=== PATIENT | male | born 1970 | race Caucasian/White ===

== ENCOUNTER → 2020-01-25 13:07 | Outpatient (REF) | payer BC, SELFPAY | LOC: ANHLAB 13:07 | PROVIDERS: PCP Family Medicine; Visit Provider Nurse Practitioner | DX: R22.9 Localized swelling, mass and lump, unspecified (principal); S00.252A Superficial foreign body of left eyelid and periocular area, initial encounter | CPT/HCPCS: 88304 ==

== ENCOUNTER 2021-08-09 22:52 | Emergency (ER) | payer BC, SELFPAY ==
--- NOTE | ~2021-08-09 | XR_ITS ---
EXAMINATION: XR chest 2V DATE: 08/10/2021 00:51 INDICATION: Productive cough. TECHNIQUE: Frontal and lateral views of the chest were obtained. COMPARISON: None. FINDINGS: There are mild airspace opacities in superior segment left lower lobe. No pleural effusion or pneumothorax. The heart size is normal. IMPRESSION: 1. Mild airspace opacities in superior segment left lower lobe, consistent with atelectasis versus pn eumonia. Reviewed, dictated and finalized at location A. IMPRESSION: 1. Mild airspace opacities in superior segment left lower lobe, consistent with atelectasis versus pneumonia.
[2021-08-09 22:54] VITALS: BP 170/92; PULSE 89; RESP 20; TEMP 36.4; O2SAT 100
[2021-08-10 00:29] VITALS: BP 146/90; PULSE 95; RESP 18; O2SAT 100; O2SAT 99
--- NOTE | 2021-08-10 01:31 | ED.URI ---
HPI - URI/Sore Throat General Chief Complaint: Upper Respiratory Infection <Lay Markham PA-C - Last Filed: 08/10/21 03:04> Stated Complaint: SOB, cough <Lay Markham PA-C - Last Filed: 08/10/21 03:04> Time Seen by Provider: 08/10/21 00:06 <Lay Markham PA-C - Last Filed: 08/10/21 03:04> History of Present Illness HPI Narrative: Patient is a 50-year-old male with a history of anxiety who presents for evaluation of a cough that has been intermittent in nature in the past 6 months, but has been relatively persistent over the past 3 weeks. Patient states he has been coughing up clear sputum, and that his coughing fits occasionally makes him feel short of breath. Has been vaccinated against COVID and flu, and second negative at home test upon start of his symptoms. He is also been treated for his cough with albuterol as needed and azithromycin, which provided temporary relief of his symptoms, but they returned about 4 days ago. He has never had imaging of his lungs. Additionally has been taking Mucinex with some relief. He denies any chest pain, leg swelling, hemoptysis, nausea, vomiting, fevers, chills, weakness, rash, exertional dyspnea. He has a remote smoking history 18 years ago but quit, and he does report exposure to silica at work. No ACEI use. <DUSTIN Peters Last Filed: 08/10/21 03:04> Related Data Home Medications: Home Medications Medication Instructions Recorded Confirmed buspirone 15 mg tablet 15 mg PO .QD tablet 11/29/19 07/24/21 escitalopram oxalate 20 mg tablet 10 mg PO DAILY tablet 11/29/19 07/24/21 naltrexone 50 mg tablet 50 mg PO DAILY 07/08/21 07/24/21 <DUSTIN Peters Last Filed: 08/10/21 03:04> Allergies/Adverse Reactions: Allergies Allergy/AdvReac Type Severity Reaction Status Date / Time diclofenac Allergy Unknown Unknown Verified 08/09/21 22:58 shrimp Allergy Itching Verified 08/09/21 22:58 <Lay Markham PA-C - Last Filed: 08/10/21 03:04> Review of Systems Review of Systems: Gen: Denies fevers or chills Eyes: Denies eye pain or visual change ENT: Denies congestion Respiratory: Reports cough. CV: Denies chest pain or palpitations GI: Denies abdominal pain nausea, emesis or diarrhea : denies burning, urgency, frequency or hematuria Musculoskeletal: Denies back pain or muscle pain Neuro: Denies numbness, tingling, weakness or focal weakness Skin: Denies rash Except as documented, all other systems reviewed and negative <Lay Markham PA-C - Last Filed: 08/10/21 03:04> All systems reviewed & are unremarkable except as noted in HPI and below <Lay Markham PA-C - Last Filed: 08/10/21 03:04> [facility] Past Medical History Medical History: Medical History Anxiety BMI 33.0-33.9,adult Bursitis of shoulder, left Class 1 obesity with body mass index (BMI) of 33.0 to 33.9 in adult Eczematous skin lesions Extensor tendon laceration of left elbow with open wound Post concussion syndrome Prostate cancer screening Subdural hem-concussion TBI (traumatic brain injury) Vitamin B12 deficiency Wellness examination <Lay Markham PA-C - Last Filed: 08/10/21 03:04> Surgical History Surgical History: Surgical History History of elbow surgery History of hand surgery History of hernia repair History of shoulder surgery <Lay Markham PA-C - Last Filed: 08/10/21 03:04> Social History Social History: Social History Second hand tobacco smoke exposure: No Smoking end date: 04/26/99 Alcohol intake: current Drinks per week: 3 Substance use: never Substance use type: does not use Gender identity (if verbalized by the patient): Male Sexual Orientation (if Verbal
[2021-08-10 01:49] LABS: SARS-CoV-2 RNA PCR Negative
[2021-08-10 02:06] VITALS: BP 131/86; PULSE 81; RESP 18; O2SAT 98
[2021-08-10] MEDS: BENZONATATE 100 MG CAPSULE PO (02:06)
== END 2021-08-10 02:11 | disposition home or self-care (01) ==
PROVIDERS: Physician Assistant; Emergency Provider Emergency Medicine; PCP Family Medicine
DX: R05.3 Chronic cough (principal); Z57.2 Occupational exposure to dust; F41.9 Anxiety disorder, unspecified; E55.9 Vitamin D deficiency, unspecified; Z87.891 Personal history of nicotine dependence; Z87.820 Personal history of traumatic brain injury; Z20.822 Contact with and (suspected) exposure to COVID-19
CPT/HCPCS: 71046; 99283; A9270; C9803; U0003; U0005

== ENCOUNTER 2021-08-26 00:06 | Day surgery (SDC) | payer BC, SELFPAY ==
[2021-08-26 06:16] VITALS: BP 114/87; PULSE 73; RESP 18; TEMP 36.1; O2SAT 98
[2021-08-26] MEDS: LACTATED RINGERS 1,000 ML 150 ML IV CONT (06:20)
--- NOTE | 2021-08-26 07:15 | WPDGICN ---
Assessment and Plan Assessment and plan (1) Colon cancer screening: Code(s): Z12.11 - Encounter for screening for malignant neoplasm of colon Status: Acute Assessment and Plan: Patient presents for screening colonoscopy. He appears to be at average risk for colon polyps. GI Consult Note Consult date/time: 08/26/21 07:15 HPI: Miriam Alvarenga is a 50 year old male Presents for screening colonoscopy. Patient's current weight appetite bowel movements are normal. He denies abdominal pain. He has had no bleeding. Family history is noncontributory. Review of Systems Review of Systems: All systems reviewed & are unremarkable except as noted in HPI and below PMFSH Past Medical History Medical History (Reviewed 08/13/21 @ 13:52 by Loida Mccurdy [facility]) Anxiety BMI 33.0-33.9,adult Bursitis of shoulder, left Class 1 obesity with body mass index (BMI) of 33.0 to 33.9 in adult Eczematous skin lesions Extensor tendon laceration of left elbow with open wound Post concussion syndrome Prostate cancer screening Subdural hem-concussion TBI (traumatic brain injury) Vitamin B12 deficiency Wellness examination Surgical History Surgical History History of elbow surgery History of hand surgery History of hernia repair History of shoulder surgery Social History Social History (Reviewed 08/13/21 @ 13:52 by Loida Mccurdy [facility]) Smoking packs per day: 1 Smoking cigarettes per day: 20.0 Years smoked: 13 Smoking pack-years: 13.00 Smoking status: Former smoker Tobacco type: cigarettes Second hand tobacco smoke exposure: No Smoking end date: 04/26/99 Alcohol intake: current Drinks per week: 12 Substance use: never Substance use type: does not use Living arrangements: with family Gender identity (if verbalized by the patient): Male Sexual Orientation (if Verbalized by the Patient): Straight or Heterosexual Spiritual care concerns: No Meds Home Medications and Allergies Home Medications Medication Instructions Recorded Confirmed Type buspirone 15 mg tablet 15 mg PO .QD tablet 11/29/19 08/26/21 History escitalopram oxalate 20 mg tablet 10 mg PO DAILY tablet 11/29/19 08/26/21 History triamcinolone acetonide 0.1 % 1 applic TOPICAL BID #30 gm 08/23/20 08/26/21 Rx topical cream clotrimazole-betamethasone 1 1 applic TOPICAL BID 14 Days #45 g 08/29/20 08/26/21 Rx %-0.05 % topical cream tolnaftate 1 % topical powder 1 applic TOPICAL DAILY #45 g 08/29/20 08/26/21 Rx ascorbic acid (vitamin C) 500 mg 250 mg PO DAILY #30 tablet 07/08/21 08/26/21 Rx tablet mecobalamin (vitamin B12) 1,000 1,000 mcg SUBLINGUAL DAILY #30 07/08/21 08/26/21 Rx mcg disintegrating tablet tablet,sublingual naltrexone 50 mg tablet 50 mg PO DAILY 07/08/21 08/26/21 History omega-3 900 mg-dha 360 mg-epa 455 1 cap PO DAILY #30 cap 07/08/21 08/26/21 Rx mg-fish oil 1,000 mg capsule benzonatate 100 mg PO BID #20 cap 08/10/21 08/26/21 Rx Allergies Allergy/AdvReac Type Severity Reaction Status Date / Time diclofenac Allergy Unknown Unknown Verified 08/26/21 06:15 shrimp Allergy Hives Verified 08/26/21 06:15 Vital Signs Vital Signs - 24 hr 08/26/21 06:16 Temperature 96.9 F L Pulse Rate 73 Respiratory Rate 18 Blood Pressure 114/87 Pulse Oximetry 98 Exam Narrative: Physical exam reveals patient be alert. Vital signs stable. HEENT exam is unremarkable. Patient is anicteric. Lungs are clear to auscultation percussion. Heart is without murmur or extra sounds. Abdomen bowel sounds are present soft nontender with no organomegaly. Digital external rectal exam is normal.
--- NOTE | 2021-08-26 07:16 | WPDANESEPPF ---
Anes - Initial Pre Proc Eval Procedure: Operation Date: 08/26/21 07:30 Proposed Procedures p Screening Colonoscopy - Errol Iqbal MD Date/Time: 08/26/21 07:16 Surgeon: Errol Iqbal MD Pre Op Diagnosis: neoplasm screening Patient Data Age: 50 Gender: M Height: 1.78 m Weight: 94 kg Last Vital Signs Temp 96.9 F L 08/26/21 06:16 Pulse 73 08/26/21 06:16 Resp 18 08/26/21 06:16 BP 114/87 08/26/21 06:16 Pulse Ox 98 08/26/21 06:16 Allergies Allergy/AdvReac Type Severity Reaction Status Date / Time diclofenac Allergy Unknown Unknown Verified 08/26/21 06:15 shrimp Allergy Hives Verified 08/26/21 06:15 Home Medications Medication Instructions Recorded Confirmed Type buspirone 15 mg tablet 15 mg PO .QD tablet 11/29/19 08/26/21 History escitalopram oxalate 20 mg tablet 10 mg PO DAILY tablet 11/29/19 08/26/21 History triamcinolone acetonide 0.1 % 1 applic TOPICAL BID #30 gm 08/23/20 08/26/21 Rx topical cream clotrimazole-betamethasone 1 1 applic TOPICAL BID 14 Days #45 g 08/29/20 08/26/21 Rx %-0.05 % topical cream tolnaftate 1 % topical powder 1 applic TOPICAL DAILY #45 g 08/29/20 08/26/21 Rx ascorbic acid (vitamin C) 500 mg 250 mg PO DAILY #30 tablet 07/08/21 08/26/21 Rx tablet mecobalamin (vitamin B12) 1,000 1,000 mcg SUBLINGUAL DAILY #30 07/08/21 08/26/21 Rx mcg disintegrating tablet tablet,sublingual naltrexone 50 mg tablet 50 mg PO DAILY 07/08/21 08/26/21 History omega-3 900 mg-dha 360 mg-epa 455 1 cap PO DAILY #30 cap 07/08/21 08/26/21 Rx mg-fish oil 1,000 mg capsule benzonatate 100 mg PO BID #20 cap 08/10/21 08/26/21 Rx Patient hx anesthesia problems: post op nausea/vomiting Family hx anesthesia problems: none Results Review: All pre-operative results and documents have been reviewed as part of the pre-operative evaluation. PMFSH Past Medical History Medical History Anxiety BMI 33.0-33.9,adult Bursitis of shoulder, left Class 1 obesity with body mass index (BMI) of 33.0 to 33.9 in adult Eczematous skin lesions Extensor tendon laceration of left elbow with open wound Post concussion syndrome Prostate cancer screening Subdural hem-concussion TBI (traumatic brain injury) Vitamin B12 deficiency Wellness examination Surgical History Surgical History History of elbow surgery History of hand surgery History of hernia repair History of shoulder surgery Social History Social History Smoking packs per day: 1 Smoking cigarettes per day: 20.0 Years smoked: 13 Smoking pack-years: 13.00 Smoking status: Former smoker Tobacco type: cigarettes Second hand tobacco smoke exposure: No Smoking end date: 04/26/99 Alcohol intake: current Drinks per week: 12 Substance use: never Substance use type: does not use Living arrangements: with family Gender identity (if verbalized by the patient): Male Sexual Orientation (if Verbalized by the Patient): Straight or Heterosexual Spiritual care concerns: No Anes - Eval Final PreProcedure Day of Procedure 08/26/21 07:16 Patient weight: obese Heart: regular rate and rhythm Lungs: clear to auscultation Airway: Mallampati scale class III Neurological: alert and oriented Last oral intake: >/= 8 hours ASA classification: III Emergent: no Anesthetic plan: proceed Anesthesia type and monitoring: general GIVS and standard monitoring Results Review: All pre-operative results and documents have been reviewed as part of the pre-operative evaluation. Informed Consent: The patient's anesthetic plan and its attendant risks and benefits were discussed with the patient/family/POA. Questions were solicited and answers provided to the satisfaction of the patient/family/POA.
[2021-08-26] MEDS: SIMETHICONE ORAL SUSPENSION 20 MG/0.3 ML 30 ML BOTTLE 0.6 ML IRRIGATION (07:40)
[2021-08-26 07:51] VITALS: BP 110/85; PULSE 75; RESP 20; O2SAT 97
[2021-08-26 08:01] VITALS: BP 111/75; PULSE 61; RESP 17; O2SAT 99
[2021-08-26 08:11] VITALS: BP 106/79; PULSE 56; RESP 19; O2SAT 99
== END 2021-08-26 08:15 | disposition home or self-care (01) ==
PROVIDERS: PCP Family Medicine; Visit Provider Internal Medicine Gastroenterology
PROC: 0DJD8ZZ Inspection of Lower Intestinal Tract, Via Natural or Artificial Opening Endoscopic (ICD-10-PCS; CPT 45378; principal; 2021-08-26 07:30)
DX: Z12.11 Encounter for screening for malignant neoplasm of colon (principal); D12.3 Benign neoplasm of transverse colon; K64.8 Other hemorrhoids; E53.8 Deficiency of other specified B group vitamins; F41.9 Anxiety disorder, unspecified; Z87.820 Personal history of traumatic brain injury; Z87.891 Personal history of nicotine dependence
CPT/HCPCS: 45385; 88305; J2704; J7120

== ENCOUNTER → 2021-10-31 02:03 | Outpatient (CLI) | payer BC, SELFPAY ==
[2021-10-31 12:24] LABS: SARS-CoV-2 RNA PCR Positive
== END ==
PROVIDERS: PCP Family Medicine; Visit Provider Family Medicine
DX: U07.1 COVID-19 (principal)
CPT/HCPCS: C9803; U0003; U0005

== ENCOUNTER 2021-11-25 09:26 | Outpatient (CLI) | payer BC, SELFPAY ==
--- NOTE | ~2021-11-25 | XR_ITS ---
EXAMINATION: XR chest 2V 11/25/2021 09:45 INDICATION: Dyspnea. Cough. PROCEDURE: 2 view chest COMPARISON: 08/10/2021 FINDINGS: The lungs are clear. The cardiomediastinal silhouette is within normal limits. There are no pleural effusions. There is no pneumothorax suspected. IMPRESSION: 1: NO ACUTE CARDIOPULMONARY DISEASE. Reviewed, dictated and finalized at location A.
== END 2021-11-25 09:27 | disposition home or self-care (01) ==
PROVIDERS: PCP Family Medicine; Visit Provider Internal Medicine Pulmonary Disease
DX: R91.8 Other nonspecific abnormal finding of lung field (principal)
CPT/HCPCS: 71046

== ENCOUNTER → 2022-05-07 09:45 | Outpatient (CLI) | payer OTHER, SELFPAY ==
--- NOTE | ~2022-05-07 | US_ITS ---
EXAMINATION: US abdomen complete DATE: 05/07/2022 10:08 INDICATION: Unspecified abdominal pain TECHNIQUE: Multiple grayscale and Doppler ultrasound images of the abdomen were obtained. COMPARISON: None available FINDINGS: Bowel gas obscures visualization of the pancreas. The liver is normal with normal echogenic ity and echotexture. No surface nodularity. Normal hepatopetal flow in the main portal vein. The gall bladder is normal with no abnormal wall thickening, pericholecystic fluid or stones. The normal commo n bile duct measures 5 mm. There was no sonographic Pinto sign. The visualized portions of the aorta and inferior vena cava are normal. The spleen is normal in appearance and measures 11.2 cm. The right kidney measures 10.9 x 5.0 x 4.4 c m. The left kidney measures 11.5 x 4.1 x 5.7 cm. The kidneys demonstrate normal parenchymal echogenic ity. There is no hydronephrosis. IMPRESSION: 1. No sonographic correlate for the patient's symptoms. Reviewed, dictated and finalized at location L. L PUNCH OPERATOR
== END ==
PROVIDERS: PCP Family Medicine; Visit Provider Physician Assistant
DX: R10.9 Unspecified abdominal pain (principal)
CPT/HCPCS: 76700

== ENCOUNTER 2022-05-20 12:51 | Outpatient (CLI) | payer OTHER, SELFPAY ==
[2022-05-23 11:21] LABS: Gliadin AB, IgG <1.0 U/mL (<15.0); TTG IGA AB <1.0 U/mL (<15.0)
[2022-05-27 23:56] LABS: Calprotectin, Stool 19 mcg/g
== END 2022-05-20 12:52 | disposition home or self-care (01) ==
LOC: ANHLAB 12:53
PROVIDERS: PCP Family Medicine; Visit Provider Nurse Practitioner
DX: R10.11 Right upper quadrant pain (principal); K58.0 Irritable bowel syndrome with diarrhea; K90.9 Intestinal malabsorption, unspecified
CPT/HCPCS: 36415; 83516; 83993; 86255

== ENCOUNTER 2022-05-27 07:36 | Outpatient (CLI) | payer OTHER, SELFPAY ==
--- NOTE | ~2022-05-27 | NM_ITS ---
EXAMINATION: NM hepatobiliary wo pharm DATE: 05/27/2022 12:30 INDICATION: Postprandial right upper quadrant abdominal pain COMPARISON: None. TECHNIQUE: 5.1 mCi Tc-99m mebrofenin (Choletec) was administered intravenously. Scintigraphic images of the abdomen were obtained for one hour. At the 1 hour time point, the patient drank 8 oz Ensure, and imaging was continued for 60 minutes. Gallbladder ejection fraction was calculated by the technol ogist. FINDINGS: There is normal clearance of radiotracer from the blood pool. There is homogeneous tracer u ptake by the liver. Activity progresses to the bowel and gallbladder. The gallbladder ejection fract ion (GBEF) is 62%. Note that with this technique, normal GBEF >= 33%. IMPRESSION: 1. Normal hepatobiliary scan Reviewed, dictated and finalized at location A. AR TAILOR
== END 2022-05-27 07:37 | disposition home or self-care (01) ==
LOC: ANHIMG 07:39
PROVIDERS: PCP Family Medicine; Visit Provider Nurse Practitioner Family
DX: R10.11 Right upper quadrant pain (principal); K90.9 Intestinal malabsorption, unspecified
CPT/HCPCS: 78226; A9537

== ENCOUNTER 2023-01-20 15:40 | Outpatient (CLI) | payer OTHER, SELFPAY ==
[2023-01-20 17:10] LABS: Influenza A QL RT-PCR Negative (Negative); Influenza B QL RT-PCR Negative (Negative); RSV RNA, RT-PCR Negative (Negative); SARS-CoV-2 RNA PCR Positive (Negative)
== END 2023-01-20 15:41 | disposition home or self-care (01) ==
LOC: ANHLAB 15:42
PROVIDERS: PCP Family Medicine; Visit Provider Physician Assistant
DX: U07.1 COVID-19 (principal)
CPT/HCPCS: 87637

== ENCOUNTER 2024-06-01 19:27 | Emergency (ER) | payer OTHER, SELFPAY ==
--- NOTE | ~2024-06-01 | US_ITS ---
EXAMINATION: US venous doppler LE RT DATE: 06/01/2024 21:57 INDICATION: Pain TECHNIQUE: Grayscale ultrasound images without and with compression and Doppler ultrasound images of the right lower extremity veins were obtained. COMPARISON: None. FINDINGS: The visualized portions of right common femoral vein, profunda (deep) femoral vein, femoral vein, pop liteal vein, peroneal veins, posterior tibial veins, and greater saphenous vein outflow are patent. IMPRESSION: 1. No deep venous thrombosis within the right lower extremity, as detailed above. Reviewed, dictated and finalized at location [facility] IMPRESSION: 1. No deep venous thrombosis within the right lower extremity, as detailed abo ve.
--- OUTSIDE RECORDS SUMMARY | 2024-06-01 19:29 | XMS_ITS | Clinical Summary ---
Author Organization [facility] Address [address] [place] [address] Care Team Providers Care Surgical Assist Name Role Phone Eugenie Allen MD Primary Care Provider [phone] Source Comments [facility],non-owned Affiliates and Associated Physician Practices is amultiple site organization consisting of ambulatory clinics and hospital sitesin [place], [place], [place] and [place]. This disclosure is being madepursuant to the Care Everywhere program and may not contain all information available regarding this patient. Last updated 18.[facility] Allergies No known active allergies Medications * Be aware that medications may not be up to date on this document. Alwaysverify current medications with the patient. Medication Sig Dispensed Refills Start Date End Date Status busPIRone (BUSPAR) 10 MG tablet Take 25 mg by mouth once daily Active busPIRone (BUSPAR) 10 MG tablet Take 30 mg by mouth at bedtime Active escitalopram (LEXAPRO) 10 MG tablet Take 10 mg by mouth once daily Active Active Problems Problem Noted Date Diagnosed Date Elevated ETOH level 10/29/2018 SAH (subarachnoid hemorrhage) 10/28/2018 Subdural hemorrhage following injury 10/28/2018 Immunizations Name Administration Dates Next Due TDAP (7yrs+) 06/27/2018 Social History Tobacco Use Types Packs/Day Years Used Date Smoking Tobacco: Never Smokeless Tobacco: Never Tobacco Cessation:Counseling Given: No Alcohol Use Standard Drinks/Week Comments Yes 0 (1 standard drink = 0.6 oz pur e alcohol) socially Sex and Gender Information Value Date Recorded Sex Assigned at Not on file Gender Identity Not on file Sexual Orientation Not on file Last Filed Vital Signs Vital Sign Reading Time Taken Comments Blood Pressure 125/87 12/21/2018 8:03 AM CDT Pulse 57 12/21/2018 8:03 AM CDT Temperature 36.7 C (98 F) 10/29/2018 8:18 AM CDT Respiratory Rate 18 10/29/2018 8:18 AM CDT Oxygen Saturation 99% 10/29/2018 8:18 AM CDT Inhaled Oxygen Concentration - - Weight 95.3 kg (210 lb) 12/21/2018 8:03 AM CDT Height 177.8 cm (5' 10 ) 12/21/2018 8:03 AM CDT Body Mass Index 30.13 12/21/2018 8:03 AM CDT Plan of Treatment Health Maintenance Due Date Last Done Comments COLOGUARD (AGES 45-75) - COLON CA SCREENING 1970 COLON MONITORING 1970 COLONOSCOPY - COLON CA SCREENING 1970 CT COLONOGRAPHY - COLON CA SCREENING 1970 Colorectal Cancer Screening 1970 FIT - COLON CA SCREENING 1970 FLEX SIG - COLON CA SCREENING 1970 LIPID TESTING 1970 HIV SCREENING 1985 HEPATITIS C SCREENING 10/06/1988 HEPATITIS B VACCINE (1 of 3 - 19+ 3-dose series) 1989 PNEUMOCOCCAL VACCINE 50+ (1 of 1 - PCV) 2020 ZOSTER VACCINE (1 of 2) 2020 SCREENING FOR DIABETES 10/29/2021 9, 10/28/2018, 10/28/2018, Additional history exists COVID-19 VACCINE ( - season) 2023 INFLUENZA VACCINE (#1) 2023 DEPRESSION SCREENING 04/26/2024 DTAP/TDAP/TD VACCINES (2 - Td or Tdap) 06/27/2028 06/27/2018 HIB VACCINE Aged Out No longer eligi ble based on patient's age to complete this topic HPV VACCINE Aged Out No longer eligi ble based on patient's age to complete this topic MENINGOCOCCAL (Group B) VACCINE Aged Out No longer eligible based on patient's age to complete this topic MENINGOCOCCAL VACCINE Aged Out No rakesh camryn eligible based on patient's age to complete this topic PNEUMOCOCCAL VACCINE Aged Out No long er eligible based on patient's age to complete this topic Procedures Procedure Name Priority Date/Time Associated Diagnosis Comments BASIC METABOLIC PANEL (CALCIUM TOTAL) Routine 10/29/2018 2:36 AM CDT from Last 3 Months or Most Recently Relevant to Health Maintenance Results * BASIC METABOLIC PANEL (CALCIUM TOTAL) (10/29/2018 2:36 AM CDT) BUN 11 7 - 26 mg/dL 10/29/2018 3:10 AM [facility] Creatinine 1.0 0.6 - 1.2 mg/dL 10/29/2018 3:10 AM [facility] Sodium 139 136 - 145 mmol/L 10/29/2018 3:10 AM [facility] Potassium 4.4 3.5 - 4.5 mmol/L 10/29/2018 3:10 AM [facility] Chloride 107 98 - 107 mmol/L 10/29/2018 3:10 AM [facility] CO2 24 22 - 29 mmol/L 10/29/2018 3:10 AM [facility] Glucose 111 70 - 115 mg/dL 10/29/2018 3:10 AM [facility] Calcium 8.7 8.4 - 10.2 mg/dL 10/29/2018 3:10 AM [facility] Anion Gap 12 8 - 18 10/29/2018 3:10 AM [facility] BUN/Creatinine Ratio 11 7 - 23 10/29/2018 3:10 AM [facility] Osmolality Calculated 288 270 - 300 mOsm/kg 10/29/2018 3:10 AM [facility] eGFR >60 >60 mL/min/1.7 3 m2 10/29/2018 3:10 AM [facility] Blood BLOOD SPECIMEN / Unknown Lab Venipuncture / Unknown 10/29/2018 2:36 AM CDT 10/29/2018 2:48 AM CDT Margarita Tomas MD LAB - CHEMISTRY ORDERABLES [facility] [address] [place] [address], [facility] [phone] from Last 3 Months or Most Recently Relevant to Health Maintenance Advance Directives * Full Code (Latest Code Status on File) Date Activated Date Inactivated Comments 10/28/2018 3:13 AM 10/29/2018 1:03 PM Care Teams Surgical Assist Relationship Specialty Start Date End Date Eugenie Allen MD [address] [place] [address] PCP - General 09/02/21
--- OUTSIDE RECORDS SUMMARY | 2024-06-01 19:29 | XMS_ITS | Patient Health Summary ---
Author Organization [facility] Address [address] [place] [address] Care Team Providers Care Administrative Judge Name Role Phone Eugenie Allen MD Primary Care Provider [phone] Note from [facility],non-owned Affiliates and Associated Physician Practices is amultiple site organization consisting of ambulatory clinics and hospital sitesin [place], [place], [place] and [place]. This disclosure is being madepursuant to the Care Everywhere program and may not contain all information available regarding this patient. Last updated 18.[facility] Allergies No known active allergies Medications * Be aware that medications may not be up to date on this document. Alwaysverify current medications with the patient. * busPIRone (BUSPAR) 10 MG tablet Take 25 mg by mouth once daily * busPIRone (BUSPAR) 10 MG tablet Take 30 mg by mouth at bedtime * escitalopram (LEXAPRO) 10 MG tablet Take 10 mg by mouth once daily Active Problems Problem Noted Date Diagnosed Date Elevated ETOH level 10/29/2018 SAH (subarachnoid hemorrhage) 10/28/2018 Subdural hemorrhage following injury 10/28/2018 Immunizations * TDAP (7yrs+)(Given 06/27/2018) Social History Tobacco Use Types Packs/Day Years [...] Mass Index 30.13 12/21/2018 8:03 AM CDT Procedures * CT HEAD WO CONTRAST(Performed 12/21/2018) Performed for SAH (subarachnoid hemorrhage) ([facility]) * CBC W AUTO DIFFERENTIAL(Performed 10/29/2018) * BASIC METABOLIC PANEL (CALCIUM TOTAL)(Performed 10/29/2018) * PHOSPHORUS BLOOD(Performed 10/28/2018) * MAGNESIUM BLOOD(Performed 10/28/2018) * BASIC METABOLIC PANEL (CALCIUM TOTAL)(Performed 10/28/2018) * BASIC METABOLIC PANEL (CALCIUM TOTAL)(Performed 10/28/2018) * BASIC METABOLIC PANEL (CALCIUM TOTAL)(Performed 10/28/2018) * CT HEAD WO CONTRAST(Performed 10/28/2018) Performed for Traumatic subarachnoid hemorrhage with loss of consciousness of 30 minutes or less, initial encounter ([facility]) * CBC W AUTO DIFFERENTIAL(Performed 10/28/2018) * URINE DRUG SCREEN IMMUNOASSAY(Performed 10/28/2018) * TYPE + SCREEN PANEL(Performed 10/27/2018) * PHOSPHORUS BLOOD(Performed 10/27/2018) * MAGNESIUM BLOOD(Performed 10/27/2018) * ALCOHOL ETHYL BLOOD(Performed 10/27/2018) * PT-INR [facility](Performed 10/27/2018) * CBC W AUTO DIFFERENTIAL(Performed 10/27/2018) * BASIC METABOLIC PANEL (CALCIUM TOTAL)(Performed 10/27/2018) Results * CT HEAD WO CONTRAST (12/21/2018 8:02 AM CDT) Only the most recent of2 resultswithin the time period is included. Anatomical Region Laterality Modality Head Computed Tomogra phy 12/21/2018 8:43 AM CDT Impressions 12/21/2018 8:46 AM CDT IMPRESSION: Interval resolution of the subarachnoid hemorrhage. No new hemorrhage. No acute intracranial abnormality. This report was electronically signed by LIA CRAMER on 12/21/2018 8:46 AM . Narrative 12/21/2018 8:46 AM CDT EXAMINATION: Computed tomography (CT) of the head without contrast HISTORY: TBI TECHNIQUE: CT of the head was performed without contrast according to standard protocol. COMPARISON: CT head from 10/28/2018. FINDINGS: There has been complete resolution of the previously seen bilateral para midline frontal subarachnoid hemorrhage. There is no acute hemorrhage. There is no hydrocephalus, midline shift or extra-axial fluid collection. There is no significant parenchymal abnormality. The paranasal sinuses and tympanomastoid cavities are aerated. The orbits are unremarkable. There is no skull fracture. Procedure Note iLa Cramer MD - 12/21/2018 EXAMINATION: Computed tomography (CT) of the head without contrast HISTORY: TBI TECHNIQUE: CT of the head was performed without contrast according to standard protocol. COMPARISON: CT head from 10/28/2018. FINDINGS: There has been complete resolution of the previously seen bilateral para midline frontal subarachnoid hemorrhage. There is no acute hemorrhage. There is no hydrocephalus, midline shift or extra-axial fluidcollection. There is no significant parenchymal abnormality. The paranasal sinuses and tympanomastoid cavities are aerated. Theorbits are unremarkable. There is no skull fracture. IMPRESSION: Interval resolution of the subarachnoid hemorrhage. No new hemorrhage.No acute intracranial abnormality. This report was electronically signed by LIA CRAMER on 12/21/2018 8:46AM . Eugenie Pérez MD CT ORDERABLES * (ABNORMAL) CBC W AUTO DIFFERENTIAL (10/29/2018 2:36 AM CDT) Only the most recent of3 resultswithin the time period is included. WBC 7.8 3.5 - 10.5 10 3/uL 10/29/2018 3:[address] [facility] RBC 4.53 4.30 - 5.70 10 6/uL 10/29/2018 3:01 AM CDT [facility] Hemoglobin 13.6 13.5 - 17.5 g/dL 10/29/2018 3:01 AM [facility] Hematocrit 40.3 39.0 - 50.0 % 10/29/2018 3:01 AM [facility] MCV 89.0 81.0 - 97.0 fL 10/29/2018 3:01 AM [facility] MCH 30.0 28.0 - 34.0 pg 10/29/2018 3:01 AM [facility] MCHC 33.7 32.0 - 36.0 g/dL 10/29/2018 3:01 AM [facility] Platelet Count 273 150 - 400 10 3/uL 10/29/2018 3:01 AM [facility] RDW-SD 43.5 36.0 - 50.0 fL 10/29/2018 3:01 AM [facility] RDW-CV 13.3 11.2 - 14.8 % 10/29/2018 3:01 AM [facility] MPV 8.5(L) 9.3 - 12.8 fL 10/29/2018 3:01 AM [facility] nRBC Absolute 0.00 0 10 3/uL 10/29/2018 3:01 AM [facility] nRBC Auto 0.0 0 /100 WBC 10/29/2018 3:01 AM [facility] Neutrophils % 55.6 35.0 - 70.0 % 10/29/2018 3:01 AM [facility] Lymphocytes % 29.7 19.7 - 55.1 % 10/29/2018 3:01 AM [facility] Monocytes % 12.1 3.0 - 15.0 % 10/29/2018 3:01 AM [facility] Eosinophils % 1.9 0.0 - 6.0 % 10/29/2018 3:01 AM [facility] Basophil % 0.4 0.0 - 1.5 % 10/29/2018 3:01 AM [facility] Neutrophils Absolute 4.3 1.6 - 7.0 10 3/uL 10/29/2018 3:01 AM [facility] Lymphocyte Absolute 2.3 0.8 - 2.9 10 3/uL 10/29/2018 3:01 AM [facility] Monocytes Absolute 0.94(H) 0.14 - 0.66 10 uL 10/29/2018 3:01 AM [facility] Eosinophils Absolute 0.15 0.00 - 0.45 10 uL 10/29/2018 3:01 AM [facility] Basophils Absolute 0.03 0.00 - 0.06 10 10/29/2018 3:01 AM [facility] Immature Granulocytes % 0.3 0.0 - 1.0 % 10/29/2018 3:01 AM [facility] Blood BLOOD SPECIMEN / Unknown Lab Venipuncture / Unknown 10/29/2018 2:36 AM CDT 10/29/2018 2:49 AM CDT Margarita Tomas MD LAB - HEMATOLOGY ORDERABLES [facility] [address] [place] [address] * BASIC METABOLIC PANEL (CALCIUM TOTAL) (10/29/2018 2:36 AM CDT) Only the most recent of5 resultswithin the time period is included. BUN 11 7 - 26 mg/dL 10/29/2018 3:10 AM [facility] Creatinine 1.0 0.6 - 1.2 mg/dL 10/29/2018 3:10 AM [facility] Sodium 139 136 - 145 mmol/L 10/29/2018 3:10 AM [facility] Potassium 4.4 3.5 - 4.5 mmol/L 10/29/2018 3:10 AM [facility] Chloride 107 98 - 107 mmol/L 10/29/2018 3:10 AM [facility] CO2 24 22 - 29 mmol/L 10/29/2018 3:10 AM [facility] Glucose 111 70 - 115 mg/dL 10/29/2018 3:10 AM [facility] Calcium 8.7 8.4 - 10.2 mg/dL 10/29/2018 3:10 AM [facility] Anion Gap 12 8 - 18 10/29/2018 3:10 AM CDT [facility] BUN/Creatinine Ratio 11 7 - 23 10/29/2018 3:10 AM CDT [facility] Osmolality Calculated 288 270 - 300 mOsm/kg 10/29/2018 3:10 AM CDT [facility] eGFR >60 >60 mL/min/1.7 3 m2 10/29/2018 3:10 AM CDT [facility] Blood BLOOD SPECIMEN / Unknown Lab Venipuncture / Unknown 10/29/2018 2:36 AM CDT 10/29/2018 2:48 AM CDT Margarita Tomas MD LAB - CHEMISTRY ORDERABLES [address] [phone] * PHOSPHORUS BLOOD (10/28/2018 11:41 PM CDT) Only the most recent of2 resultswithin the time period is included. Phosphorus 2.6 2.3 - 4.7 mg/dL 10/29/2018 12:11 AM CDT [facility] Blood BLOOD SPECIMEN / Unknown Lab Venipuncture / Unknown 10/28/2018 11:41 PM CDT 10/28/2018 11:46 PM CDT Margarita Tomas MD LAB - CHEMISTRY ORDERABLES Performing Organization Address City/[facility]/ZIP Co de Phone Number [address] [phone] * MAGNESIUM BLOOD (10/28/2018 11:41 PM CDT) Only the most recent of2 resultswithin the time period is included. Magnesium 2.1 1.6 - 2.6 mg/dL 10/29/2018 12:11 AM CDT [facility] Blood BLOOD SPECIMEN / Unknown Lab Venipuncture / Unknown 10/28/2018 11:41 PM CDT 10/28/2018 11:46 PM CDT Margarita Tomas MD LAB - CHEMISTRY ORDERABLES [address] [phone] * DRUG SCREEN TOX URINE PANEL (10/28/2018 12:55 AM CDT) [facility] Amphetamines Screen Urine Negative Negative: < 1000 ng/mL 10/28/2018 1:27 AM T [facility] Barbiturates Screen Urine Negative Negative: < 200 ng/mL 10/28/2018 1:27 AM [facility] Benzodiazepine Screen Urine Negative Negative: < 200 ng/mL 10/28/2018 1:27 AM [facility] Opiates Urine Negative Negative: < 300 ng/mL 10/28/2018 1:27 AM [facility] Cocaine Metabolites Urine Negative Negative: < 300 ng/mL 10/28/2018 1:27 AM [facility] Phencyclidine Screen Urine Negative Negative: < 25 ng/ml 10/28/2018 1:27 AM [facility] Cannabinoids Screen Urine Negative Negative: <50 ng/mL 10/28/2018 1:27 AM [facility] Methadone Screen Urine Negative Negative: < 300 ng/mL 10/28/2018 1:27 AM [facility] Urine URINE / Unknown Collection / Unknown 10/28/2018 12:55 AM CDT 10/28/2018 12:55 AM CDT [facility] - 10/28/2018 1:27 AM CDT The Urine Toxicology Screening Panel does not screen for Propoxyphene, Meprobamate, Carisoprodol, Trazodone, mahw-jwo-zqdfiro medications and/or volatiles (Acetone, Isopropanol, Methanol or Ethylene Glycol). Ethanol, Salicylate, Acetaminophen, Tricyclic Antidepressants and several therapeutic drugs may be individually assayed in serum or plasma specimen. Toxicology testing by the [facility] is an aid to medical diagnosis and treatment of patients. No documented chain of custody was maintained. Results are intended to be used for clinical purposes only. Cisco Zendejas MD LAB - URINE CHEMIS TRY ORDERABLES [address] [phone] * TYPE + SCREEN PANEL (10/27/2018 11:55 PM CDT) [facility] Antibody Screen NEG 9 12:[address] [facility] ABO Rh O POS 10/28/2018 12:[address] [facility] Blood Bank BLOOD SPECIMEN / Unknown 10/27/2018 11:55 PM CDT 10/27/2018 11:55 PM CDT Cisco Zendejas MD LAB - BLOOD BANK O RDERABLES Performing Organization Address [facility] Co de Phone Number [facility] [address] [place] [address] * (ABNORMAL) PT-INR [facility] (10/27/2018 11:53 PM CDT) [facility] PT 12.0(L) 12.1 - 14.8 Seconds 10/28/2018 12:02 AM CDT [facility] INR 0.9 See Comment 10/28/2018 12:02 AM T [facility] Comment: The suggested therapeutic range for standard coumadin (warfarin) therapy is an INR of 2.0-3.0. For high-risk patients (Mechanical Mitral Valve Prosthesis, etc.), the suggested prophylactic therapeutic range is an INR of 2.5-3.5. Blood BLOOD SPECIMEN / Unknown Venipuncture / Unknown 10/27/2018 11:53 PM CDT 10/27/2018 11:53 PM CDT Cisco Zendejas MD LAB - COAGULATION ORDERABLES Performing Organization Address City/[facility]/ZIP Co de Phone Number [address] [phone] * (ABNORMAL) ALCOHOL ETHYL BLOOD (10/27/2018 11:53 PM CDT) [facility] Ethanol (mg/dL) 104(H) None Detected mg/dL 10/28/2018 1:07 AM T [facility] Comment: Ethanol in the patient's blood will contribute to the osmolar gap. Ethanol's contribution to the osmolar gap can be estimated by dividing the concentration of ethanol in mg/dL by 4.6. Blood BLOOD SPECIMEN / Unknown Venipuncture / Unknown 10/27/2018 11:53 PM CDT 10/28/2018 12:56 AM CDT Cisco Zendejas MD LAB - CHEMISTRY OR DERABLES Performing Organization Address [facility]/State/[facility] Co de Phone Number [address] [phone] Care Teams Administrative Judge Relationship Specialty Start Date End Date Eugenie Allen MD [address] [place] [address] PCP - General 09/02/21
--- OUTSIDE RECORDS SUMMARY | 2024-06-01 19:29 | XMS_ITS | Referral Summary ---
Author Organization [facility] Address [address] [place] [address] Care Team Providers Care Road Grader Name Role Phone Eugenie Allen MD Primary Care Provider Source Comments [facility],non-owned Affiliates and Associated Physician Practices is amultiple site organization consisting of ambulatory clinics and hospital sitesin [place], [place], [place] and [place]. This disclosure is being madepursuant to the Care Everywhere program and may not contain all information available regarding this patient. Last updated 18.[facility] Allergies No known active allergies Medications * [...] Mass Index 30.13 12/21/2018 8:03 AM CDT Functional Status Functional Status Response Date of Assess ment Is person deaf or have serious hearing difficult y? No 10/29/2018 Is person blind or have serious difficulty seein g? No 10/29/2018 Does person have serious dif ficulty walking/climbing stairs? No 10/28/2018 Does person have difficulty dressing/bathing? No 10/28/2018 Does person have difficulty doing errands alone? No 10/28/2018 Cognitive Status Response Date of Assessm ent Does person have difficulty concentrating/remembering/making decisions? No 10/28/2018 Plan of Treatment Not on file Procedures Procedure Name Priority Date/Time Associated Diagnosis Comments BASIC METABOLIC PANEL (CALCIUM TOTAL) Routine 10/29/2018 2:36 AM CDT from Last 3 Months or Most Recently Relevant to Health Maintenance Results * BASIC METABOLIC PANEL (CALCIUM TOTAL) (10/29/2018 2:36 AM CDT) BUN 11 7 - 26 mg/dL 10/29/2018 3:10 AM CDT [facility] Creatinine 1.0 0.6 - 1.2 mg/dL 10/29/2018 3:10 AM CDT [facility] Sodium 139 136 - 145 mmol/L 10/29/2018 3:10 AM CDT [facility] Potassium 4.4 3.5 - 4.5 mmol/L 10/29/2018 3:10 AM CDT [facility] Chloride 107 98 - 107 mmol/L 10/29/2018 3:10 AM [facility] CO2 24 22 - 29 mmol/L 10/29/2018 3:10 AM [facility] Glucose 111 70 - 115 mg/dL 10/29/2018 3:10 AM [facility] Calcium 8.7 8.4 - 10.2 mg/dL 10/29/2018 3:10 AM [facility] Anion Gap 12 8 - 18 10/29/2018 3:10 AM [facility] BUN/Creatinine Ratio 11 7 - 23 10/29/2018 3:10 AM [facility] Osmolality Calculated 288 270 - 300 mOsm/kg 10/29/2018 3:10 AM [facility] eGFR >60 >60 mL/min/1.7 3 m2 10/29/2018 3:10 AM [facility] Blood BLOOD SPECIMEN / Unknown Lab Venipuncture / Unknown 10/29/2018 2:36 AM CDT 10/29/2018 2:48 AM [facility] Margarita Tomas MD LAB - CHEMISTRY ORDERABLES [facility] [address] [phone] from Last 3 Months or Most Recently Relevant to Health Maintenance Advance Directives * Full Code (Latest Code Status on File) Date Activated Date Inactivated Comments 10/28/2018 3:13 AM 10/29/2018 1:[address] Grader Relationship Specialty Start Date End Date Eugenie Allen MD [address] [place] [address] PCP - General 09/02/21
--- OUTSIDE RECORDS SUMMARY | 2024-06-01 19:29 | XMS_ITS | Clinical Summary ---
Author Organization [facility] Address [address] [place] [address] Care Team Providers Care Egg Separator Name Role Phone Eugenie Allen MD Primary Care Provider [phone] Allergies Active Allergy Reactions Criticality Noted Date Comments Shrimp Extract Other (see comment) 02/03/2024 flushes Tape Redness 02/03/2024 Medications vilazodone (VIIBRYD) 20 MG tablet Take 1 tablet (20 mg total) by mouth daily. with food. 4 Active clotrimazole-be tamethasone (LOTRISONE) cream Apply topically 2 (two) times daily. 4 Active cetirizine (ZYRTEC) 5 MG tablet Take 1 tablet (5 mg total) by mouth daily. Active Social History Tobacco Use Types Packs/Day Years Used Date Smoking Tobacco: Former Cigarettes Smokeless Tobacco: Never Tobacco Cessation:Counseling Given: Not Answered Comments:Smoked 12 years, quit 21 years ago (pack a day). Used to work at [employer] 13 years. 2 years ago, nothing found in lungs on imaging Alcohol Use Standard Drinks/Week Comments Yes 0 (1 standard drink = 0.6 oz pur e alcohol) weekends, a couple of beers Sex and Gender Information Value Date Recorded Sex Assigned at Not on file Legal Sex Male 11:52 AM CDT Gender Identity Not on file Sexual Orientation Not on file Last Filed Vital Signs Vital Sign Reading Time Taken Comments Blood Pressure 125/80 02/10/2024 10:28 AM CDT Pulse 54 02/10/2024 10:28 AM CDT Temperature 36.1 C (97 F) 02/10/2024 10:28 AM CDT Respiratory Rate 16 02/10/2024 10:28 AM CDT Oxygen Saturation 98% 02/10/2024 10:28 AM CDT Inhaled Oxygen Concentration - - Weight 98.8 kg (217 lb 13 oz) 02/10/2024 6:40 AM CDT Height 177.8 cm (5' 10 ) 02/10/2024 6:40 AM CDT Body Mass Index 31.25 02/10/2024 6:40 AM CDT Plan of Treatment Health Maintenance Due Date Last Done Comments Colorectal Cancer Screening Colonoscopy (10 Years) 1970 Annual Physical 1973 Hepatitis C 1988 Hepatitis B Vaccines (1 of 3 - 19+ 3-dose series) 1989 Zoster Vaccines (1 of 2) 2020 COVID-19 Vaccine (2023-2 5 season) 2023 Influenza Adult (#1) 2024 04/03/2022, 02/21/2020, 03/15/2018 DTaP, Tdap and Td Vaccines ( 2 - Td or Tdap) 06/27/2028 06/27/2018, 04/26/2011, 10/28/2002 Meningococcal B Vaccine Aged Out No l onger eligible based on patient's age to complete this topic Meningococcal Vaccine Aged Out No rakesh camryn eligible based on patient's age to complete this topic Pneumococcal Vaccine: Pediatrics (0 to 5 Years) and At-Risk Patients (6 to 64 Years) Aged Out No longer eligible b ased on patient's age to complete this topic RSV Immunizations Under 20 Months Aged Out No longer eligible b ased on patient's age to complete this topic Insurance [facility] Care Teams Egg Separator Relationship Specialty Start Date End Date Eugenie Allen MD [address] [place] [address] PCP - General FAMILY PRACTICE 02/02/24
[2024-06-01 20:16] VITALS: BP 163/95; PULSE 90; RESP 17; TEMP 37.1; O2SAT 100
--- NOTE | 2024-06-01 21:35 | PC.NURSE ---
vrbo edp ok to put in us dvt rule out
--- NOTE | 2024-06-02 00:27 | ED.EXTPRO ---
HPI - Extremity Problem General Chief complaint: Extremity Problem,Nontraumatic Stated complaint: R calf pain Time Seen by Provider: 06/02/24 00:27 Source: patient Mode of arrival: ambulatory Limitations: no limitations History of Present Illness HPI Narrative: This is a 53 year old male who presents to the ED for chief complaint of right calf injury that occurred at the gym today. Patient states he was on the treadmill when he planted his foot here to pop in the right calf. Patient reports pain with weight-bearing. Denies any further site of injury. Denies numbness or weakness. Related Data Home Medications ?Medication ?Instructions ?Recorded ?Confirmed ?Last Taken ?Type vilazodone 20 mg tablet 20 mg PO DAILY 10/20/23 01/24/24 Unknown History Allergies Allergy/AdvReac Type Severity Reaction Status Date / Time diclofenac Allergy Unknown Unknown Verified 06/01/24 19:28 shrimp Allergy Hives Verified 06/01/24 19:28 Review of Systems Review of Systems: All systems as dictated in [facility] Past Medical History Medical History AC (acromioclavicular) joint bone spurs Adenomatous colon polyp Anxiety Arthritis BMI 33.0-33.9,adult Bursitis of shoulder, left Chronic alcohol use Class 1 obesity with body mass index (BMI) of 33.0 to 33.9 in adult Eczematous skin lesions Extensor tendon laceration of left elbow with open wound Irritable bowel syndrome with diarrhea Post concussion syndrome Prostate cancer screening RUQ abdominal pain Steatorrhea Subdural hem-concussion TBI (traumatic brain injury) Vitamin B12 deficiency Wellness examination Surgical History Surgical History History of elbow surgery History of hand surgery History of hernia repair History of shoulder surgery Social History Social History Smoking packs per day: 1 Smoking cigarettes per day: 20.0 Years smoked: 13 Smoking pack-years: 13.00 Smoking status: Former smoker Tobacco type: cigarettes Second hand tobacco smoke exposure: No Smoking end date: 04/26/99 Alcohol intake: current Drinks per week: 12 Substance use: never Substance use type: does not use Lack of Transportation: No Lack of Food: Never True Current Housing: I Have Housing Concerned About Future Housing: No Difficulty Paying Gas/Electric Bills: No Difficulty Paying for Meds: No Currently Unemployed: No Difficulty w/ Childcare or Family Care: No Living arrangements: with family Gender identity (if verbalized by the patient): Male Sexual Orientation (if Verbalized by the Patient): Straight or Heterosexual Spiritual care concerns: No Agree to blood products: Yes Exam Narrative: GENERAL: Well-appearing, well-nourished, and in no acute distress. HEAD: Normocephalic, atraumatic. EYES: PERRLA and EOMI. ENT: Nares clear, no rhinorrhea or epistaxis. Mucous membranes moist. Oropharynx without tonsillar hypertrophy exudate or other lesions. NECK: Supple. No adenopathy or masses. CHEST: No respiratory distress. Clear to auscultation. No wheezes rales or rhonchi HEART: Regular rate and rhythm. No murmur heard. Normal peripheral pulses. ABDOMEN: Soft, nontender, nondistended, normal active bowel sounds. MSK: Normal range of motion. No edema. Mild tenderness to the right calf. No deformity or bruising. Rolle test negative. Ambulatory without assistance. SKIN: Warm, dry, no rash. NEURO: Alert and oriented x4. No focal deficits. PSYCH: Normal mood and affect. Course Vital Signs Vital signs: Vital Signs Temperature 98.7 F 06/01/24 20:16 Pulse Rate 90 06/01/24 20:16 Respiratory Rate 17 06/01/24 20:16 Blood Pressure 163/95 H 06/01/24 20:16 Pulse Oximetry 100 06/01/24 20:16 Temperature 98.7 F 06/01/24 20:16 Pulse Rate 90 06/01/24 20:16 Respiratory Rate 17 06/01/24 20:16 Blood Pressure 163/95 H 06/01/24 20:16 Pulse Oximetry 100 06/01/24 20:16 MDM - Extremity (Nontraumatic) MDM Narrative Medical decision making narrative: This is a 53-year-old male who presents to the ED for chief complaint of right leg pain while walking on the treadmill. Vitals are normal. Exam remarkable for the above. Rolle test for Achilles tendon rupture is negative. Ultrasound Doppler shows no acute findings. Presentation consistent with gastrocnemius muscle strain/tear. Strength is preserved. Patient will be discharged in stable condition. Supportive measures discussed and return precautions given. Patient is understanding and agreeable with plan for discharge with PCP follow-up. Discharge Plan Discharge Clinical Impression: Strain of right calf muscle Patient Disposition: Home, Self-Care Condition: Stable Instructions: Antibiotic Form Additional Instructions: Your exam and imaging were reassuring today. Your calf is probably strained. Continue with Tylenol 500 mg and ibuprofen 600 mg every 6 hours for pain and swelling. Follow-up with PCP on this issue. If you have any new or worsening symptoms please return to the ER for further evaluation. Patient Language: Vietnamese Prescriptions: No Action vilazodone 20 mg tablet 20 mg PO DAILY Rx Instructions: must administer with a meal/food clotrimazole-betamethasone 1-0.05 % cream 1 applic TOPICAL BID 14 Days Qty: 45 1RF Follow-up/Referrals: Eugenie Allen MD [Primary Care Provider] - Time of Disposition: 00:30
--- OUTSIDE RECORDS SUMMARY | 2024-06-02 00:37 | XMS_ITS | Referral Summary ---
Author Organization [facility] Address [address] [place] [address] Care Team Providers Care Journeyman Tool And Die Maker Name Role Phone Eugenie Allen MD Primary Care Provider [phone] Source Comments [facility],non-owned Affiliates and Associated Physician Practices is amultiple site organization consisting of ambulatory clinics and hospital sitesin [place], [place], [place] and [place]. This disclosure is being madepursuant to the Care Everywhere program and may not contain all information available regarding this patient. Last updated 18.[facility] Allergies No known active allergies Medications * [...] - 26 mg/dL 10/29/2018 3:10 AM CDT [facility] Creatinine 1.0 0.6 - 1.2 mg/dL 10/29/2018 3:10 AM CDT [facility] Sodium 139 136 - 145 mmol/L 10/29/2018 3:10 AM CDT [facility] Potassium 4.4 3.5 - 4.5 mmol/L 10/29/2018 3:10 AM CDT [facility] Chloride 107 98 - 107 mmol/L 10/29/2018 3:[address] [facility] CO2 24 22 - 29 mmol/L 10/29/2018 3:[address] [facility] Glucose 111 70 - 115 mg/dL 10/29/2018 3:[address] [facility] Calcium 8.7 8.4 - 10.2 mg/dL 10/29/2018 3:[address] [facility] Anion Gap 12 8 - 18 10/29/2018 3:[address] [facility] BUN/Creatinine Ratio 11 7 - 23 10/29/2018 3:[address] [facility] Osmolality Calculated 288 270 - 300 mOsm/kg 10/29/2018 3:[address] [facility] eGFR >60 >60 mL/min/1.7 3 m2 10/29/2018 3:[address] [facility] Blood BLOOD SPECIMEN / Unknown Lab Venipuncture / Unknown 10/29/2018 2:36 AM CDT 10/29/2018 2:[address] [facility] Margarita Tomas MD LAB - CHEMISTRY ORDERABLES [facility] [address] [phone] from Last 3 Months or Most Recently Relevant to Health Maintenance Advance Directives * Full Code (Latest Code Status on File) Date Activated Date Inactivated Comments 10/28/2018 3:13 AM 10/29/2018 1:03 PM Care Teams Journeyman Tool And Die Maker Relationship Specialty Start Date End Date Eugenie Allen MD [address] [place] [address] PCP - General 09/02/21
--- OUTSIDE RECORDS SUMMARY | 2024-06-02 00:37 | XMS_ITS | Clinical Summary ---
Author Organization [email or web address] Address [address] [place] [address] Care Team Providers Care Nut Dehydrator Operator Name Role Phone Eugenie Allen MD Primary Care Provider [phone] Source Comments [email or web address],non-owned Affiliates and Associated Physician Practices is amultiple site organization consisting of ambulatory clinics and hospital sitesin [place], [place], [place] and [place]. This disclosure is being madepursuant to the Care Everywhere program and may not contain all information available regarding this patient. Last updated 18.[email or web address] Allergies No known active allergies Medications * [...] 7 - 26 mg/dL 10/29/2018 3:10 AM [facility] Creatinine 1.0 0.6 - 1.2 mg/dL 10/29/2018 3:10 AM [facility] Sodium 139 136 - 145 mmol/L 10/29/2018 3:10 AM [facility] Potassium 4.4 3.5 - 4.5 mmol/L 10/29/2018 3:10 AM [facility] Chloride 107 98 - 107 mmol/L 10/29/2018 3:10 AM [facility] CO2 24 22 - 29 mmol/L 10/29/2018 3:10 AM [facility] Glucose 111 70 - 115 mg/dL 10/29/2018 3:10 AM [facility] Calcium 8.7 8.4 - 10.2 mg/dL 10/29/2018 3:10 AM [facility] Anion Gap 12 8 - 18 10/29/2018 3:10 AM [facility] BUN/Creatinine Ratio 11 7 - 23 10/29/2018 3:10 AM [facility] Osmolality Calculated 288 270 - 300 mOsm/kg 10/29/2018 3:10 AM [facility] eGFR >60 >60 mL/min/1.7 3 m2 10/29/2018 3:10 AM [facility] Blood BLOOD SPECIMEN / Unknown Lab Venipuncture / Unknown 10/29/2018 2:36 AM CDT 10/29/2018 2:48 AM CDT Margarita Tomas MD LAB - CHEMISTRY ORDERABLES [facility] [address] [place] [address], [facility] [phone] from Last 3 Months or Most Recently Relevant to Health Maintenance Advance Directives * Full Code (Latest Code Status on File) Date Activated Date Inactivated Comments 10/28/2018 3:13 AM 10/29/2018 1:03 PM Care Teams Nut Dehydrator Operator Relationship Specialty Start Date End Date Eugenie Allen MD [address] [place] [address] PCP - General 09/02/21
--- OUTSIDE RECORDS SUMMARY | 2024-06-02 00:37 | XMS_ITS | Patient Health Summary ---
Author Organization [facility] [employer] Address [address] [place] [address] Care Team Providers Care Surgical Assistant Certified Name Role Phone Eugenie Allen MD Primary Care Provider [phone] Note from [facility],non-owned Affiliates and Associated Physician Practices is amultiple site organization consisting of ambulatory clinics and hospital sitesin [place], [place], [place] and [place]. This disclosure is being madepursuant to the Care Everywhere program and may not contain all information available regarding this patient. Last updated 18.[facility] Allergies No known active allergies Medications * [...] CONTRAST(Performed 12/21/2018) Performed for SAH (subarachnoid hemorrhage) ([facility]) * CBC W AUTO DIFFERENTIAL(Performed 10/29/2018) * [...] of 30 minutes or less, initial encounter ([facility]) * CBC W AUTO DIFFERENTIAL(Performed 10/28/2018) * [...] There is no skull fracture. Procedure Note Lia Cramer MD - 12/21/2018 EXAMINATION: Computed tomography [...] 10.5 10 3/uL 10/29/2018 3:01 AM CDT [facility] RBC 4.53 4.30 - 5.70 10 6/uL 10/29/2018 3:01 AM CDT [facility] Hemoglobin 13.6 13.5 - 17.5 g/dL 10/29/2018 3:01 AM [facility] Hematocrit 40.3 39.0 - 50.0 % 10/29/2018 3:01 AM [facility] MCV 89.0 81.0 - 97.0 fL 10/29/2018 3:01 AM [facility] MCH 30.0 28.0 - 34.0 pg 10/29/2018 3:01 AM [facility] MCHC 33.7 32.0 - 36.0 g/dL 10/29/2018 3:01 AM [facility] Platelet Count 273 150 - 400 10 3/uL 10/29/2018 3:01 AM [facility] RDW-SD 43.5 36.0 - 50.0 fL 10/29/2018 3:01 AM [facility] RDW-CV 13.3 11.2 - 14.8 % 10/29/2018 3:01 AM [facility] MPV 8.5(L) 9.3 - 12.8 fL 10/29/2018 3:01 AM [facility] nRBC Absolute 0.00 0 10 3/uL 10/29/2018 3:01 AM [facility] nRBC Auto 0.0 0 /100 WBC 10/29/2018 3:01 AM [facility] Neutrophils % 55.6 35.0 - 70.0 % 10/29/2018 3:01 AM [facility] Lymphocytes % 29.7 19.7 - 55.1 % 10/29/2018 3:01 AM [facility] Monocytes % 12.1 3.0 - 15.0 % 10/29/2018 3:01 AM [facility] Eosinophils % 1.9 0.0 - 6.0 % 10/29/2018 3:01 AM [facility] Basophil % 0.4 0.0 - 1.5 % 10/29/2018 3:01 AM [facility] Neutrophils Absolute 4.3 1.6 - 7.0 10 3/uL 10/29/2018 3:01 AM [facility] Lymphocyte Absolute 2.3 0.8 - 2.9 10 3/uL 10/29/2018 3:01 AM [facility] Monocytes Absolute 0.94(H) 0.14 - 0.66 10 uL 10/29/2018 3:01 AM [facility] Eosinophils Absolute 0.15 0.00 - 0.45 10 uL 10/29/2018 3:01 AM [facility] Basophils Absolute 0.03 0.00 - 0.06 10 10/29/2018 3:01 AM [facility] Immature Granulocytes % 0.3 0.0 - 1.0 % 10/29/2018 3:01 AM [facility] Blood BLOOD SPECIMEN / Unknown Lab Venipuncture / Unknown 10/29/2018 2:36 AM CDT 10/29/2018 2:49 AM CDT Margarita Tomas MD LAB - HEMATOLOGY ORDERABLES [facility] [address] [place] [address] * BASIC METABOLIC PANEL (CALCIUM TOTAL) (10/29/2018 2:36 AM CDT) Only the most recent of5 resultswithin the time period is included. BUN 11 7 - 26 mg/dL 10/29/2018 3:10 AM [facility] Creatinine 1.0 0.6 - 1.2 mg/dL 10/29/2018 3:10 AM [facility] Sodium 139 136 - 145 mmol/L 10/29/2018 3:10 AM [facility] Potassium 4.4 3.5 - 4.5 mmol/L 10/29/2018 3:10 AM [facility] Chloride 107 98 - 107 mmol/L 10/29/2018 3:10 AM [facility] CO2 24 22 - 29 mmol/L 10/29/2018 3:10 AM [facility] Glucose 111 70 - 115 mg/dL 10/29/2018 3:10 AM [facility] Calcium 8.7 8.4 - 10.2 mg/dL 10/29/2018 3:10 AM [facility] Anion Gap 12 8 - 18 10/29/2018 3:10 AM CDT [facility] BUN/Creatinine Ratio 11 7 - 23 10/29/2018 3:10 AM CDT [facility] Osmolality Calculated 288 270 - 300 mOsm/kg 10/29/2018 3:10 AM CDT [facility] eGFR >60 >60 mL/min/1.7 3 m2 10/29/2018 3:10 AM CDT [facility] Blood BLOOD SPECIMEN / Unknown Lab Venipuncture / Unknown 10/29/2018 2:36 AM CDT 10/29/2018 2:48 AM CDT Margarita Tomas MD LAB - CHEMISTRY ORDERABLES [address] [phone] * PHOSPHORUS BLOOD (10/28/2018 11:41 PM CDT) Only the most recent of2 resultswithin the time period is included. Phosphorus 2.6 2.3 - 4.7 mg/dL 10/29/2018 12:11 AM CDT [facility] Blood BLOOD SPECIMEN / Unknown Lab Venipuncture / Unknown 10/28/2018 11:41 PM CDT 10/28/2018 11:46 PM CDT Margarita Tomas MD LAB - CHEMISTRY ORDERABLES Performing Organization Address City/[facility]/ZIP Co de Phone Number [address] [phone] * MAGNESIUM BLOOD (10/28/2018 11:41 PM CDT) Only the most recent of2 resultswithin the time period is included. Magnesium 2.1 1.6 - 2.6 mg/dL 10/29/2018 12:11 AM CDT [facility] Blood BLOOD SPECIMEN / Unknown Lab Venipuncture / Unknown 10/28/2018 11:41 PM CDT 10/28/2018 11:46 PM CDT Margarita Tomas MD LAB - CHEMISTRY ORDERABLES [address] [phone] * DRUG SCREEN TOX URINE PANEL (10/28/2018 12:55 AM CDT) [facility] Amphetamines Screen Urine Negative Negative: < 1000 ng/mL 10/28/2018 1:27 AM T [facility] Barbiturates Screen Urine Negative Negative: < 200 ng/mL 10/28/2018 1:27 AM [facility] Benzodiazepine Screen Urine Negative Negative: < 200 ng/mL 10/28/2018 1:27 AM [facility] Opiates Urine Negative Negative: < 300 ng/mL 10/28/2018 1:27 AM [facility] Cocaine Metabolites Urine Negative Negative: < 300 ng/mL 10/28/2018 1:27 AM [facility] Phencyclidine Screen Urine Negative Negative: < 25 ng/ml 10/28/2018 1:27 AM [facility] Cannabinoids Screen Urine Negative Negative: <50 ng/mL 10/28/2018 1:27 AM [facility] Methadone Screen Urine Negative Negative: < 300 ng/mL 10/28/2018 1:27 AM [facility] Urine URINE / Unknown Collection / Unknown 10/28/2018 12:55 AM CDT 10/28/2018 12:55 AM CDT [facility] - 10/28/2018 1:27 AM CDT The Urine Toxicology Screening Panel does not screen for Propoxyphene, Meprobamate, Carisoprodol, Trazodone, spkr-[id number] medications and/or volatiles (Acetone, Isopropanol, Methanol or Ethylene Glycol). Ethanol, Salicylate, Acetaminophen, Tricyclic Antidepressants and several therapeutic drugs may be individually assayed in serum or plasma specimen. Toxicology testing by the [facility] is an aid to medical diagnosis and treatment of patients. No documented chain of custody was maintained. Results are intended to be used for clinical purposes only. Cisco Zendejas MD LAB - URINE CHEMIS TRY ORDERABLES [address] [phone] * TYPE + SCREEN PANEL (10/27/2018 11:55 PM CDT) [facility] Antibody Screen NEG 9 12:38 AM CDT [facility] ABO Rh O POS 10/28/2018 12:38 AM CDT [facility] Blood Bank BLOOD SPECIMEN / Unknown 10/27/2018 11:55 PM CDT 10/27/2018 11:55 PM CDT Cisco Zendejas MD LAB - BLOOD BANK O RDERABLES Performing Organization Address [facility] Co de Phone Number [facility] [address] [place] [address] * (ABNORMAL) PT-INR [facility] (10/27/2018 11:53 PM CDT) [facility] PT 12.0(L) 12.1 - 14.8 Seconds 10/28/2018 12:02 AM CDT [facility] INR 0.9 See Comment 10/28/2018 12:02 AM T [facility] Comment: The suggested therapeutic range for standard coumadin (warfarin) therapy is an INR of 2.0-3.0. For high-risk patients (Mechanical Mitral Valve Prosthesis, etc.), the suggested prophylactic therapeutic range is an INR of 2.5-3.5. Blood BLOOD SPECIMEN / Unknown Venipuncture / Unknown 10/27/2018 11:53 PM CDT 10/27/2018 11:53 PM CDT Cisco Zendejas MD LAB - COAGULATION ORDERABLES Performing Organization Address City/[facility]/ZIP Co de Phone Number [address] [phone] * (ABNORMAL) ALCOHOL ETHYL BLOOD (10/27/2018 11:53 PM CDT) [facility] Ethanol (mg/dL) 104(H) None Detected mg/dL 10/28/2018 1:07 AM T [facility] Comment: Ethanol in the patient's blood will contribute to the osmolar gap. Ethanol's contribution to the osmolar gap can be estimated by dividing the concentration of ethanol in mg/dL by 4.6. Blood BLOOD SPECIMEN / Unknown Venipuncture / Unknown 10/27/2018 11:53 PM CDT 10/28/2018 12:56 AM CDT Cisco Zendejas MD LAB - CHEMISTRY OR DERABLES Performing Organization Address [facility]/State/[facility] Co de Phone Number [address] [phone] Care Teams Surgical Assistant Certified Relationship Specialty Start Date End Date Eugenie Allen MD [address] [place] [address] PCP - General 09/02/21
--- OUTSIDE RECORDS SUMMARY | 2024-06-02 00:37 | XMS_ITS | Clinical Summary ---
Author Organization [facility] Address [address] [place] [address] Care Team Providers Care Simonizer Name Role Phone Eugenie Allen MD Primary Care Provider [phone] Allergies Active Allergy Reactions Criticality Noted Date [...] (pack a day). Used to work at [employer] 13 years. 2 years ago, nothing found [...] patient's age to complete this topic Insurance [facility] Care Teams Simonizer Relationship Specialty Start Date End Date Eugenie Allen MD [address] [place] [address] PCP - General FAMILY PRACTICE 02/02/24
== END 2024-06-02 00:40 | disposition home or self-care (01) ==
LOC: ANHED 06-02 00:35
PROVIDERS: Emergency Provider Physician Assistant; PCP Family Medicine
DX: S86.911A Strain of unspecified muscle(s) and tendon(s) at lower leg level, right leg, initial encounter (principal); M79.661 Pain in right lower leg; E53.8 Deficiency of other specified B group vitamins; K58.0 Irritable bowel syndrome with diarrhea; M19.90 Unspecified osteoarthritis, unspecified site; F41.9 Anxiety disorder, unspecified; Z86.0101 Personal history of adenomatous and serrated colon polyps; Z87.820 Personal history of traumatic brain injury; Z87.891 Personal history of nicotine dependence; Z79.899 Other long term (current) drug therapy; X50.9XXA Other and unspecified overexertion or strenuous movements or postures, initial encounter; Y93.A1 Activity, exercise machines primarily for cardiorespiratory conditioning
CPT/HCPCS: 93971; 99284